=== PATIENT | male | born 1960 | race Hispanic/Latino ===

== ENCOUNTER → 2020-09-22 00:17 | Outpatient (CLI) | payer OTHER, SELFPAY ==
[2020-09-22 17:44] LABS: SARS-CoV-2 RNA PCR Negative
== END ==
PROVIDERS: PCP Internal Medicine; Visit Provider Internal Medicine Gastroenterology
DX: Z01.812 Encounter for preprocedural laboratory examination (principal); Z20.822 Contact with and (suspected) exposure to COVID-19
CPT/HCPCS: C9803; U0003; U0005

== ENCOUNTER 2020-09-25 00:43 | Day surgery (SDC) | payer OTHER, SELFPAY ==
[2020-09-14 09:27] VITALS: BMI 28.1
--- NOTE | 2020-09-25 12:20 | P.PNAN_ITS ---
Anes - Initial Pre Proc Eval Procedure: Operation Date: 09/25/20 13:15 Proposed Procedures p Screening Colonoscopy - Ajay Rios MD Date/Time: 09/25/20 12:20 Surgeon: Ajay Rios MD Pre Op Diagnosis: Neoplasm Screening, Hx of Colon Polyps Patient Data Age: 60 Gender: M Height: 5 ft 8 in Weight: 84 kg Allergies Allergy/AdvReac Type Severity Reaction Status Date / Time No Known Allergies Allergy Unknown Verified 12/05/06 22:28 Home Medications Medication Instructions Recorded Confirmed Type aspirin 81 mg tablet,delayed 81 mg PO DAILY 08/08/20 09/14/20 History release diltiazem HCl 300 mg 300 mg PO DAILY 08/08/20 09/14/20 History capsule,extended release 24 hr rosuvastatin 10 mg tablet 10 mg PO DAILY 08/08/20 09/14/20 History sodium,potassium,mag sulfates 17.5 See Rx Instructions PO .COMPLEX 08/31/20 Rx gram-3.13 gram-1.6 gram oral soln #354 ml Patient hx anesthesia problems: none Family hx anesthesia problems: none [facility] Past Medical History Medical History (Updated 08/08/20 @ 14:11 by Rogerio Wallace DO) H/O acute myocardial infarction Cardiac cath clear Social History Social History (Updated 08/08/20 @ 13:43 by Cherie Renteria [facility]) Years smoked: 25 Smoking status: Former smoker Tobacco type: cigarettes Additional smoking assessment comments: QUIT SMOKING 10 YEARS AGO. Alcohol intake: current Drinks per week: 14 Alcohol use details: DRINKS RUM Substance use: never Substance use type: does not use Living arrangements: with family Gender identity (if verbalized by the patient): Male Spiritual care concerns: No Anes - Eval Final PreProcedure Day of Procedure 09/25/20 12:20 Patient weight: overweight Heart: regular rate and rhythm Lungs: clear to auscultation Airway: Mallampati scale class II Neurological: alert and oriented Last oral intake: >/= 8 hours ASA classification: III Emergent: no Anesthetic plan: proceed Anesthesia type and monitoring: general GIVS and standard monitoring Informed Consent: The patient's anesthetic plan and its attendant risks and benefits were discussed with the patient/family/POA. Questions were solicited and answers provided to the satisfaction of the patient/family/POA.
[2020-09-25 12:37] VITALS: BP 145/94; PULSE 81; RESP 16; TEMP 36.8; O2SAT 97; BMI 28.8
[2020-09-25] MEDS: LACTATED RINGERS 1,000 ML 150 ML IV CONT (12:39)
--- NOTE | 2020-09-25 13:40 | PM.HPGS ---
History of Present Illness History of Present Illness Consent: Risks, benefits, and alternatives have been discussed and questions answered. Patient agrees to proceed with procedure. Chief complaint: Neoplasm Screening, Hx of Colon Polyps Narrative: Slava Spangler is a 60 year old male with history of colon polyps, due to have another colonoscopy Review of Systems Constitutional: Constitutional: Denies headache(s) and Denies weakness Eyes: Eyes: Denies blurry vision ENT: Reports Normal hearing present, Denies headache(s) and Denies neck pain Cardiovascular: Cardiovascular: Denies chest pain and Denies dyspnea Respiratory: Respiratory: Denies dyspnea Gastrointestinal: Gastrointestinal: Reports no additional gastrointestinal complaints Genitourinary: Genitourinary: Denies dysuria Musculoskeletal: Musculoskeletal: Denies neck pain Integumentary/Breasts: Skin/Breast: Denies dry skin Neurologic: Reports Normal hearing present, Denies headache(s) and Denies weakness Psychiatric: Psychiatric: Denies anxiety Endocrine: Endocrine: Denies change in body appearance Hematologic/Lymphatic: Hematologic/Lymphatic: Denies easy bleeding Allergic/Immunologic: Allergic/Immunologic: Denies urticaria PMF Past Medical History Medical History (Updated 08/08/20 @ 14:11 by Rogerio Wallace DO) H/O acute myocardial infarction Cardiac cath clear Social History Social History (Updated 08/08/20 @ 13:43 by Cherie Renteria [facility]) Years smoked: 25 Smoking status: Former smoker Tobacco type: cigarettes Additional smoking assessment comments: QUIT SMOKING 10 YEARS AGO. Alcohol intake: current Drinks per week: 14 Alcohol use details: DRINKS RUM Substance use: never Substance use type: does not use Living arrangements: with family Gender identity (if verbalized by the patient): Male Spiritual care concerns: No Meds Home Medications and Allergies Home Medications Medication Instructions Recorded Confirmed Type aspirin 81 mg tablet,delayed 81 mg PO DAILY 08/08/20 09/14/20 History release diltiazem HCl 300 mg 300 mg PO DAILY 08/08/20 09/14/20 History capsule,extended release 24 hr rosuvastatin 10 mg tablet 10 mg PO DAILY 08/08/20 09/14/20 History Allergies Allergy/AdvReac Type Severity Reaction Status Date / Time No Known Allergies Allergy Unknown Verified 09/25/20 12:35 Vital Signs Vital Signs - 24 hr 09/25/20 12:37 Temperature 98.3 F Pulse Rate 81 Respiratory Rate 16 Blood Pressure 145/94 H Pulse Oximetry 97 Exam Const: General: comfortable and no acute distress HENMT: General nose exam: Normal nares present Eyes: General: appearance normal, both eyes and all related structures Neck: Neck: no JVD Resp: Auscultation: clear to auscultation bilaterally Cardio: Rate: regular rate Rhythm: regular rhythm GI: Inspection: non-distended GI Palp: Yes Soft to palpation Skin: General skin exam: normal color Neuro: General: gait normal Speech: normal speech Extrem: General: normal to inspection Psych: Mental Status: mental status grossly normal Assessment and Plan Assessment and plan (1) Colon polyps: Code(s): K63.5 - Polyp of colon Status: Acute Assessment and Plan: proceed with colonoscopy
[2020-09-25 14:03] VITALS: BP 124/75; PULSE 80; RESP 16; O2SAT 96
[2020-09-25 14:13] VITALS: BP 138/81; PULSE 67; RESP 16; O2SAT 100
[2020-09-25 14:23] VITALS: BP 144/89; PULSE 70; RESP 16; O2SAT 97
== END 2020-09-25 14:40 | disposition home or self-care (01) ==
PROVIDERS: PCP Internal Medicine; Visit Provider Internal Medicine Gastroenterology
PROC: 0DJD8ZZ Inspection of Lower Intestinal Tract, Via Natural or Artificial Opening Endoscopic (ICD-10-PCS; CPT 45378; principal; 2020-09-25 13:15)
DX: Z12.11 Encounter for screening for malignant neoplasm of colon (principal); D12.3 Benign neoplasm of transverse colon; D12.5 Benign neoplasm of sigmoid colon; K64.8 Other hemorrhoids; Z86.010 Personal history of colon polyps; Z87.891 Personal history of nicotine dependence
CPT/HCPCS: 45385; 88305; J2704; J7120

== ENCOUNTER 2020-12-06 13:30 | Outpatient (CLI) | payer OTHER, SELFPAY ==
--- NOTE | ~2020-12-06 | XR_ITS ---
EXAMINATION: XR chest 2V DATE: 12/06/2020 13:44 INDICATION: Hemoptysis. Right chest pain. TECHNIQUE: Frontal and lateral views of the chest were obtained. COMPARISON: Chest 2 views 02/19/2017 FINDINGS: The chest demonstrates clear lungs without pneumonia, pleural effusion, or pneumothorax. Th e heart size is normal. IMPRESSION: 1. No acute cardiopulmonary disease. Reviewed, dictated and finalized at location A.
--- NOTE | ~2020-12-06 | CT_ITS ---
EXAMINATION: CT abdomen pelvis w con DATE: 12/06/2020 14:06 INDICATION: Abdominal pain intermittently on the right TECHNIQUE: Computed tomography (CT) of the abdomen and pelvis was performed without intravenous contr ast. The dose-length product was 648.04 mGy-cm. Automated exposure control and iterative reconstructi on technique were employed. COMPARISON: CT dated 12/07/2012 FINDINGS: Lung bases are unremarkable. Heart size is normal. No significant pleural or pericardial ef fusion. Moderate atherosclerosis. No evidence for aneurysm. There are nonenlarged retroperitoneal lym ph nodes, likely reactive. Mildly prominent obturator lymph nodes, largest measuring 1.9 cm, likely r eactive. Fatty infiltration of the liver. Multiple low density masses of the liver, the largest of which are c ompatible with cysts. The smaller lesions are too small to characterize, although likely benign. Smal l subcentimeter hypodensities of the spleen, also likely benign cysts or hemangiomas. There is an acc essory splenule. The pancreas, adrenal glands are unremarkable. There is punctate nonobstructing left renal stone. There is a subcentimeter hypodensity of the right kidney, most likely benign cysts. No hydronephrosis. Gallbladder is present. Nonobstructive bowel gas pattern. No abnormal pelvic masses o r fluid collections. No free air or free fluid. There is mild osteoarthritis of the hips. Mild lumbar spondylosis. No free air or free fluid. IMPRESSION: 1. No acute abdominal abnormality. 2: Hepatic steatosis with multiple liver cysts. 3: Borderline size abdominal and pelvic lymph nodes, likely reactive. 4: Punctate nonobstructing left renal stone. Reviewed, dictated and finalized at location B.
[2020-12-06 14:00] LABS: Estimated Glomerular Filt Rate > 60
== END 2020-12-06 13:31 | disposition home or self-care (01) ==
PROVIDERS: PCP Internal Medicine; Visit Provider Internal Medicine
DX: R04.2 Hemoptysis (principal); R10.9 Unspecified abdominal pain; K76.89 Other specified diseases of liver; K76.0 Fatty (change of) liver, not elsewhere classified; N20.0 Calculus of kidney
CPT/HCPCS: 71046; 74177; Q9967

== ENCOUNTER 2020-12-19 07:33 | Outpatient (CLI) | payer OTHER, SELFPAY ==
--- NOTE | ~2020-12-19 | CT_ITS ---
EXAMINATION: CT diagnostic chest w con DATE: 12/19/2020 08:02 INDICATION: Right-sided chest pain, hemoptysis TECHNIQUE: Transaxial computed tomographic images of the chest were obtained after the administration of 75 cc of Omnipaque 350 intravenous contrast. The dose-length product (DLP) was 303.88 mGy-cm. Ite rative reconstruction was used. COMPARISON: None FINDINGS: There is mild paraspinal atelectasis of the right lower lobe. No focal airspace opacities a re identified. There is no pleural effusion or pneumothorax. The heart size is normal. Calcified athe rosclerosis is noted. There are no pathologically enlarged thoracic lymph nodes. 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 Cysts of the liver measure up to 2.8 cm. There is mild thoracic spondylosis. IMPRESSION: 1. No CT correlate for the patient's symptoms. Reviewed, dictated and finalized at location A.
== END 2020-12-19 07:34 | disposition home or self-care (01) ==
LOC: ANHIMG 07:34
PROVIDERS: PCP Internal Medicine; Visit Provider Internal Medicine
DX: R07.89 Other chest pain (principal); R04.2 Hemoptysis
CPT/HCPCS: 71260; Q9967

== ENCOUNTER → 2021-01-16 02:21 | Outpatient (CLI) | payer OTHER, SELFPAY ==
[2021-01-16 17:52] LABS: SARS-CoV-2 RNA PCR Negative
== END ==
PROVIDERS: PCP Internal Medicine; Visit Provider Internal Medicine
DX: R68.89 Other general symptoms and signs (principal); Z20.822 Contact with and (suspected) exposure to COVID-19
CPT/HCPCS: C9803; U0003; U0005

== ENCOUNTER 2021-01-18 14:00 | Outpatient (CLI) | payer OTHER, SELFPAY ==
[2021-01-18 14:58] LABS: Influenza Control Positive
== END 2021-01-18 14:01 | disposition home or self-care (01) ==
LOC: ANHLAB 14:02
PROVIDERS: PCP Internal Medicine; Visit Provider Internal Medicine
DX: J02.9 Acute pharyngitis, unspecified (principal); R50.9 Fever, unspecified
CPT/HCPCS: 87804

== ENCOUNTER 2021-11-23 10:54 | Outpatient (CLI) | payer OTHER, SELFPAY ==
--- NOTE | 2021-11-23 11:45 | NEURO_ITS ---
Impression: # Complains of numbness of hands. # Bilateral Carpal Tunnel Syndrome of moderately severe degree. # Right ulnar neuropathy across the elbow. # Abnormal needle/EMG exam. # Patient does have left middle finger Dupuytren contracture. Nerve Conduction Studies Anti Sensory Summary Table Stim Site NR Peak (ms) P-T Amp (?V) Site1 Site2 Delta-P (ms) Dist (cm) Dereck (m/s) Left Median Anti Sensory (2-3nd Digit) Wrist 7.9 10.3 Wrist 2-3nd Digit 7.9 14.0 18 Wrist 7.7 19.3 Wrist 2-3nd Digit 7.9 14.0 18 Right Median Anti Sensory (2-3nd Digit) Wrist 7.0 21.2 Wrist 2-3nd Digit 7.0 14.0 20 Wrist 6.8 40.1 Wrist 2-3nd Digit 7.0 14.0 20 Left Radial Anti Sensory (Base 1st Digit) Wrist 2.3 10.9 Wrist Base 1st Digit 2.3 0.0 Right Radial Anti Sensory (Base 1st Digit) Wrist 3.1 9.4 Wrist Base 1st Digit 3.1 0.0 Left Ulnar Anti Sensory (5th Digit) Wrist 2.9 29.2 Wrist 5th Digit 2.9 14.0 48 Right Ulnar Anti Sensory (5th Digit) Wrist 3.6 32.9 Wrist 5th Digit 3.6 14.0 39 Motor Summary Table Stim Site NR Onset (ms) O-P Amp (mV) Site1 Site2 Delta-0 (ms) Dist (cm) Dereck (m/s) Left Median Motor (Abd Poll Brev) Wrist 6.0 2.9 Elbow Wrist 5.8 31.0 53 Elbow 11.8 2.9 Right Median Motor (Abd Poll Brev) Wrist 5.9 2.8 Elbow Wrist 5.2 26.0 50 Elbow 11.1 4.5 Left Ulnar Motor (Abd Dig Minimi) Wrist 2.8 4.7 A Elbow Wrist 5.4 29.0 54 A Elbow 8.2 3.5 Right Ulnar Motor (Abd Dig Minimi) Wrist 3.3 4.0 A Elbow Wrist 6.5 31.0 48 A Elbow 9.8 3.3 B Elbow Wrist 4.7 22.0 47 B Elbow 8.0 2.2 F Wave Studies NR F-Lat (ms) L-R F-Lat (ms) Left Median (Mrkrs) (Abd Poll Brev) 28.83 0.70 Right Median (Mrkrs) (Abd Poll Brev) 29.53 0.70 Left Ulnar (Mrkrs) (Abd Dig Min) 29.19 0.89 Right Ulnar (Mrkrs) (Abd Dig Min) 28.29 0.89 EMG Side Muscle Nerve Root Ins Act Fibs Amp Dur Recrt Comment Right 1stDorInt Ulnar C8-T1 Nml Nml Incr >12ms Reduced Right Ext Indicis Radial (Post Int) C7-8 Nml Nml Nml Nml Nml Right Ext Digitorum Radial (Post Int) C7-8 Nml Nml Nml Nml Nml Right BrachioRad Radial C5-6 Nml Nml Nml Nml Nml Right PronatorTeres Median C6-7 Nml Nml Nml Nml Nml Right Abd Poll Brev Median C8-T1 Nml Nml Incr >12ms Reduced Left 1stDorInt Ulnar C8-T1 Nml Nml Nml Nml Nml Left Ext Indicis Radial (Post Int) C7-8 Nml Nml Nml Nml Nml Left Ext Digitorum Radial (Post Int) C7-8 Nml Nml Nml Nml Nml Left BrachioRad Radial C5-6 Nml Nml Nml Nml Nml Left PronatorTeres Median C6-7 Nml Nml Nml Nml Nml Left Abd Poll Brev Median C8-T1 Nml Nml Incr >12ms Reduced Right ABD Dig Min Ulnar C8-T1 Nml Nml Incr >12ms Reduced Left ABD Dig Min Ulnar C8-T1 Nml Nml Nml Nml Nml MTDD
== END 2021-11-23 10:55 | disposition home or self-care (01) ==
PROVIDERS: PCP Internal Medicine; Visit Provider Nurse Practitioner
DX: R20.2 Paresthesia of skin (principal); G56.03 Carpal tunnel syndrome, bilateral upper limbs; G56.21 Lesion of ulnar nerve, right upper limb; R94.131 Abnormal electromyogram [EMG]
CPT/HCPCS: 95886; 95911

== ENCOUNTER 2021-12-20 01:12 | Day surgery (SDC) | payer OTHER, SELFPAY ==
[2021-12-13 10:06] VITALS: BMI 28.8
--- NOTE | 2021-12-13 10:19 | SUR.PREOP ---
Report to the Outpatient Waiting Room, entrance under the green pavilion located off [facility], at time __0600_ on date 12/20/21. OR Time: _0730__. - You and your visitor will be asked a series of questions to screen for COVID 19 for your protection. - Only one visitor is allowed at this time. - The patient visitor is requested to leave or wait in car when not with patient. - A mask is required within the hospital. Patients may have clear liquids (water, carbonated beverages, clear teas, apple juice) until 3 hours prior to surgery with a maximum of 20 ounces. - No food from midnight until time of surgery BEFORE 0430 AM - Infants may have breast milk until 4 hours before surgery, infant formula 6 hours prior to surgery. - Children will be allowed to drink immediately following surgery. If applicable, please bring a bottle or sippy cup to assist with drinking. Juice, water, soda, and popsicles are readily available. For infants on formula, please bring formula the day of surgery. Pacifiers are allowed. Take the following medications with a SIP of water the morning of surgery: CARDIZEM, ASPIRIN Medications to discontinue per physician ____N/A Date to take last dose Please no make-up, nail scottish, hairspray, perfume, deodorant, or body powder the day of surgery. No jewelry (including any body piercings) or valuables the day of surgery, leave them at home. Please take a shower or bath the night before, or the morning of, surgery with an antibacterial soap. Wear comfortable, loose fitting clothing. Children are encouraged to wear pajamas. - Jewelry must be removed prior to entering the operating room. Rings and piercings that are not removed may be cut off. - The hospital will not accept responsibility for valuables. - Please leave all valuables, including medications, at home the day of surgery. If you are going home after surgery, a licensed commercial trailer truck driver must drive you home. - NO public transportation without another adult. - We recommend that an adult stay with you for 24 hours following discharge. - We also recommend that you do not drive, make important decision, drink alcoholic beverages, or take any drugs that were not prescribed by your health care provider for at least 24 hours after your discharge time. For Pediatric surgeries, we recommend two adults accompany the child home (only one inside the building at this time). Follow any additional instructions given to you from your surgeon. If you or anyone in your household have experienced Covid symptoms in the past week, please notify your surgeon or the nurse liaison at the phone number below for possible testing. Telephone instructions given to __PATIENT__and asked if any additional questions and then verbalized understanding. Patient advised to call surgeon office or pre surgery nurse liaison [phone] if any additional questions.
[2021-12-20 06:20] VITALS: BP 150/82; PULSE 74; RESP 16; TEMP 37; O2SAT 96
[2021-12-20] MEDS: LACTATED RINGERS 1,000 ML 30 ML IV CONT (06:54)
--- NOTE | 2021-12-20 06:57 | P.PNAN_ITS ---
Anes - Initial Pre Proc Eval Procedure: Operation Date: 12/20/21 07:30 Proposed Procedures p Left Open Carpal Tunnel Release, Left Ulnar Neuroplasty at Elbow - Cheo Mays MD Date/Time: 12/20/21 06:57 Surgeon: Cheo Mays MD Pre Op Diagnosis: left carpal and cubital tunnel syndrome Patient Data Age: 61 Gender: M Height: 1.73 m Weight: 90.6 kg Last Vital Signs Temp 37.0 C 12/20/21 06:20 Pulse 74 12/20/21 06:20 Resp 16 12/20/21 06:20 BP 150/82 H 12/20/21 06:20 Pulse Ox 96 12/20/21 06:20 Allergies Allergy/AdvReac Type Severity Reaction Status Date / Time No Known Allergies Allergy Unknown Verified 12/20/21 06:10 Home Medications Medication Instructions Recorded Confirmed Type aspirin 81 mg tablet,delayed 81 mg PO DAILY 08/08/20 12/20/21 History release (Adult Aspirin Regimen) diltiazem HCl 300 mg 300 mg PO DAILY #30 caps 11/22/20 12/20/21 Rx capsule,extended release 24 hr Patient hx anesthesia problems: none Family hx anesthesia problems: none Results Review: All pre-operative results and documents have been reviewed as part of the pre- operative evaluation. [facility] Past Medical History Medical History H/O acute myocardial infarction Cardiac cath clear Family History Family History Father Cerebrovascular accident Other Diabetes mellitus Family history of allergic disorder Hypertension Social History Social History Smoking packs per day: 2 Smoking cigarettes per day: 40.0 Years smoked: 25 Smoking pack-years: 50.00 Smoking status: Former smoker Tobacco type: cigarettes Second hand tobacco smoke exposure: No Smoking end date: 06/30/10 Additional smoking assessment comments: QUIT SMOKING 10 YEARS AGO. Alcohol intake: current Drinks per week: 12 Alcohol use details: DRINKS RUM Substance use: never Substance use type: does not use Living arrangements: alone Gender identity (if verbalized by the patient): Male Spiritual care concerns: No Anes - Eval Final PreProcedure Day of Procedure 12/20/21 06:57 Patient weight: obese Heart: regular rate and rhythm Lungs: clear to auscultation Airway: Mallampati scale class II Neurological: alert and oriented Last oral intake: >/= 8 hours ASA classification: III Emergent: no Anesthetic plan: proceed Anesthesia type and monitoring: general GIVS and standard monitoring Results Review: All pre-operative results and documents have been reviewed as part of the pre- operative evaluation. Informed Consent: The patient's anesthetic plan and its attendant risks and benefits were di scussed with the patient/family/POA. Questions were solicited and answers provided to the satisfaction of the patient/family/POA.
--- NOTE | 2021-12-20 07:11 | WPDHPUPDATE1 ---
History and Physical Update Update Date/Time: 12/20/21 07:11 History and Physical has been reviewed, including an updated exam of the patient. There are NO changes in the patient's condition. Risks, benefits, and alternatives have been discussed and questions answered. Patient agrees to proceed with procedure.
[2021-12-20] MEDS: LIDO 1%/EPINEPHRINE/PF 1:200,000 30 ML VIAL XX (07:57)
[2021-12-20 08:37] VITALS: BP 120/105; PULSE 68; RESP 16; O2SAT 94
--- NOTE | 2021-12-20 08:42 | P.OP_ITS ---
Procedure Note - Detailed Date of Procedure 12/20/21 Pre-op Diagnosis left carpal and cubital tunnel syndrome Post-op Diagnosis Same Procedure Performed L OCTR and L ulnar neuroplasty at the elbow. Surgeon Cheo Mays MD [employer] S Anesthesia MAC Description of Procedure The 2 sites were marked on the patient's left upper extremity in the holding area.. He was taken to the operating room where was placed supine on the operating table. A time-out was held and confirmed. He was given IV sedation and the left upper extremity was prepped and draped in usual fashion. The 2 sites were marked for the incisions and locally infiltrated with 1% lidocaine with epinephrine. The extremity was exsanguinated and the tourniquet inflated to 250 mmHg. Surgery was started on the hand where the incision was made in the proximal palm as marked dissection was carried bluntly through the subcutaneous tissue. He 3 mm neurovascular structure was identified along the ulnar margin of this wound. This was carefully retracted ulnarly and the incision was made through the transverse retinaculum exposing the carpal canal. The retinaculum was divided distally and proximally for complete release. The skin was then closed with interrupted 4-0 nylon suture. Attention was turned to the elbow which was supported on folded towels and flexed. The incision was again made as marked. Once sharp dissection was carried out through the subcutaneous tissue to the interspace between the triceps muscle insertion and the medial epicondyle. The nerve was exposed was dissected free proximally where there appeared to be no areas of compression. It was then dissected distally where it passed under a dense thick Reyes ligament. The flexor muscle fascia also was opened and appeared to be also a possible source of compression on this nerve. The nerve did not sublux it was not transposed. Bleeding points were electrocoagulated. The tourniquet was released and the wound was closed with interrupted and running intradermal 3-0 Monocryl sutures. Glue was applied over the surface and a soft bandage is well. The usual bandage was applied at the wrist and the patient was discharged from the operating room stable condition. Has a prescription sent for hydrocodone 7. Estimated Blood Loss 2 Pathology None sent Condition Stable Disposition Same day
[2021-12-20 09:00] VITALS: BP 120/78; PULSE 67; RESP 16
[2021-12-20 09:20] VITALS: BP 130/82; PULSE 61; RESP 16
== END 2021-12-20 09:34 | disposition home or self-care (01) ==
PROVIDERS: PCP Internal Medicine; Visit Provider Plastic Surgery
PROC: (CPT 64721; principal; 2021-12-20 07:30)
DX: G56.02 Carpal tunnel syndrome, left upper limb (principal); G56.22 Lesion of ulnar nerve, left upper limb; R20.0 Anesthesia of skin; R20.2 Paresthesia of skin; I25.2 Old myocardial infarction; Z87.891 Personal history of nicotine dependence; Z79.82 Long term (current) use of aspirin; E66.9 Obesity, unspecified; Z68.30 Body mass index [BMI] 30.0-30.9, adult
CPT/HCPCS: 64721; 64718; A9270; J2250; J2704; J3010; J7120

== ENCOUNTER 2022-01-17 02:19 | Day surgery (SDC) | payer OTHER, SELFPAY ==
[2022-01-14 14:19] VITALS: BMI 28.5
--- NOTE | 2022-01-14 14:23 | PC.NURSE ---
Report to the Outpatient Waiting Room, entrance under the green pavilion located off [facility], at time 0600 on date 01/17/21. OR Time: 0730. - You and your visitor will be asked a series of questions to screen for COVID 19 for your protection. - Only one visitor is allowed at this time. - The patient visitor is requested to leave or wait in car when not with patient. - A mask is required within the hospital. Patients may have clear liquids (water, carbonated beverages, clear teas, apple juice) until 3 hours prior to surgery with a maximum of 20 ounces. - No food from midnight until time of surgery Take the following medications with a SIP of water the morning of surgery: DILTIAZEM Medications to discontinue per physician: N/A Date to take last dose: N/A Please no make-up, nail icelandic, hairspray, perfume, deodorant, or body powder the day of surgery. No jewelry (including any body piercings) or valuables the day of surgery, leave them at home. Please take a shower or bath the night before, or the morning of, surgery with an antibacterial soap. Wear comfortable, loose fitting clothing. - Jewelry must be removed prior to entering the operating room. Rings and piercings that are not removed may be cut off. - The hospital will not accept responsibility for valuables. - Please leave all valuables, including medications, at home the day of surgery. If you are going home after surgery, a licensed diesel truck driver must drive you home. - NO public transportation without another adult. - We recommend that an adult stay with you for 24 hours following discharge. - We also recommend that you do not drive, make important decision, drink alcoholic beverages, or take any drugs that were not prescribed by your health care provider for at least 24 hours after your discharge time. Follow any additional instructions given to you from your surgeon. If you or anyone in your household have experienced Covid symptoms in the past week, please notify your surgeon or the nurse liaison at the phone number below for possible testing. Telephone instructions given to PT - EDIS GARCIA and asked if any additional questions and then verbalized understanding. Patient advised to call surgeon office or pre surgery nurse liaison [phone] if any additional questions.
[2022-01-17 08:00] VITALS: BP 153/88; PULSE 80; RESP 18; TEMP 36.6; O2SAT 94
[2022-01-17] MEDS: LACTATED RINGERS 1,000 ML 30 ML IV CONT (08:00)
--- NOTE | 2022-01-17 08:17 | WPDHPUPDATE1 ---
History and Physical Update Update Date/Time: 01/17/22 08:17 History and Physical has been reviewed, including an updated exam of the patient. There are NO changes in the patient's condition. Risks, benefits, and alternatives have been discussed and questions answered. Patient agrees to proceed with procedure.
--- NOTE | 2022-01-17 08:26 | WPDANESEPPF ---
Anes - Initial Pre Proc Eval Procedure: Operation Date: 01/17/22 09:30 Proposed Procedures p Right Open Carpal Tunnel Release, Right Ulnar Neuroplasty at Elbow - Cheo Mays MD Date/Time: 01/17/22 08:26 Surgeon: Cheo Mays MD Pre Op Diagnosis: rt carpal tunnel syndrome, rt ulnar neuropathy elb Patient Data Age: 61 Gender: M Height: 1.73 m Weight: 85.3 kg Allergies Allergy/AdvReac Type Severity Reaction Status Date / Time No Known Allergies Allergy Unknown Verified 01/14/22 14:19 Home Medications Medication Instructions Recorded Confirmed Type aspirin 81 mg tablet,delayed 81 mg PO DAILY 08/08/20 01/14/22 History release (Adult Aspirin Regimen) diltiazem HCl 300 mg 300 mg PO DAILY #30 caps 11/22/20 01/14/22 Rx capsule,extended release 24 hr Patient hx anesthesia problems: none Family hx anesthesia problems: none Results Review: All pre-operative results and documents have been reviewed as part of the pre-operative evaluation. [facility] Past Medical History Medical History Essential hypertension H/O acute myocardial infarction Cardiac cath clear Hyperlipidemia Family History Family History Father Cerebrovascular accident Other Diabetes mellitus Family history of allergic disorder Hypertension Social History Social History Smoking packs per day: 1 Smoking cigarettes per day: 20.0 Years smoked: 30 Smoking pack-years: 30.00 Smoking status: Former smoker Tobacco type: cigarettes Second hand tobacco smoke exposure: No Smoking end date: 06/30/06 Additional smoking assessment comments: QUIT SMOKING 10 YEARS AGO. Alcohol intake: current Drinks per week: 14 Alcohol use details: 2-5 DRINKS/DAY Substance use: never Substance use type: does not use Living arrangements: alone Gender identity (if verbalized by the patient): Male Spiritual care concerns: No Anes - Eval Final PreProcedure Day of Procedure 01/17/22 08:26 Patient weight: overweight Heart: regular rate and rhythm Lungs: decreased breath sounds Neurological: alert and oriented Last oral intake: >/= 8 hours ASA classification: III Emergent: no Anesthetic plan: proceed Anesthesia type and monitoring: general GIVS and standard monitoring Results Review: All pre-operative results and documents have been reviewed as part of the pre-operative evaluation. Informed Consent: The patient's anesthetic plan and its attendant risks and benefits were discussed with the patient/family/POA. Questions were solicited and answers provided to the satisfaction of the patient/family/POA.
[2022-01-17] MEDS: LIDO 1%/EPINEPHRINE 1:100,000 10 ML VIAL INFILTRATE (09:44)
[2022-01-17 09:48] VITALS: BP 143/81; PULSE 74; RESP 18; O2SAT 93
--- NOTE | 2022-01-17 10:02 | P.OP_ITS ---
Procedure Note - Detailed Date of Procedure 01/17/22 Pre-op Diagnosis rt carpal tunnel syndrome, rt ulnar neuropathy elb Post-op Diagnosis Same Procedure Performed Right open carpal tunnel release the and right ulnar neuroplasty at the elbow Surgeon Cheo Mays MD Banquet Coordinator Suellen pearce Anesthesia MAC Description of Procedure The carpal tunnel and cubital tunnel were marked on the patient with his consent in the holding area. He was then taken to the operating room where he was placed supine on the operating table. He was given IV sedation as the extremity was prepped and draped in usual fashion. A time-out was held and confirmed. The 2 sites on the right upper extremity were again marked for the actual incision. The sites were infiltrated with 1% lidocaine with epinephrine. The tourniquet was inflated to 250 mmHg. Surgery was begun in the palm with release of the carpal ligament. The incision was made as marked and dissection was carried bluntly through the subcutaneous tissue to the palmar aponeurosis. This and the carpal retinaculum were incised with a 15. Blade. Under 3 point retraction the ligament divided distally and proximally to completely release it. No unusual anatomy was noted. The skin wound was closed with interrupted 4-0 nylon suture. The elbow was supported on folded towels the elbow flexed and the incision was made as marked over the cubital tunnel. Dissection was carried through the subcutaneous tissue to the interspace between the triceps and the medial epicondyle. Several bridging neurovascular structures were preserved. The fascia overlying the ulnar nerve was opened and the nerve was released several cm proximally. The proximal dissection released Reyes's ligament. Very little release was necessary under the flexor muscle fascia. Several bleeding points were electrocoagulated. The nerve did not sublux and was not transposed. The skin was closed with intradermal 3-0 Monocryl sutures in a cross mercer peters and a running intradermal 3-0 Monocryl to close the skin. Glue was applied to that wound Both sites were dressed in usual fashion with gauze and Jayden wrap. The tourniquet was released the patient was discharged from the operating room stable condition. He requests no prescription pain medication. Estimated Blood Loss 0 Tourniquet Time 33 Drains No Packing No Pathology None sent Complications No immediate complications Condition Stable Disposition Same day
--- NOTE | 2022-01-17 10:14 | SUR.PHASEII ---
per dr steen pt refused post op pain med prescription and he can do what ever he did past time for pain control.
[2022-01-17 10:18] VITALS: BP 157/80; PULSE 68; RESP 18; O2SAT 94
== END 2022-01-17 10:41 | disposition home or self-care (01) ==
PROVIDERS: PCP Internal Medicine; Visit Provider Plastic Surgery
PROC: (CPT 64721; principal; 2022-01-17 09:30)
DX: G56.01 Carpal tunnel syndrome, right upper limb (principal); G56.21 Lesion of ulnar nerve, right upper limb; I10 Essential (primary) hypertension; I25.2 Old myocardial infarction; E78.5 Hyperlipidemia, unspecified; Z79.82 Long term (current) use of aspirin; Z87.891 Personal history of nicotine dependence
CPT/HCPCS: 64718; 64721; A9270; J2250; J2704; J3010; J7120

== ENCOUNTER 2023-03-07 04:33 | Day surgery (SDC) | payer OTHER, SELFPAY ==
[2023-03-06 18:39] VITALS: BMI 28.9
[2023-03-07 11:52] VITALS: BP 148/84; PULSE 79; RESP 13; TEMP 36.4; O2SAT 13; BMI 29.4
--- NOTE | 2023-03-07 12:56 | WPDHPUPDATE1 ---
History and Physical Update Update Date/Time: 03/07/23 12:56 History and Physical has been reviewed, including an updated exam of the patient. There are NO changes in the patient's condition. Risks, benefits, and alternatives have been discussed and questions answered. Patient agrees to proceed with procedure.
--- NOTE | 2023-03-07 12:56 | W.PM.PROC2 ---
Procedure Note - Detailed Date of Procedure 03/07/23 Pre-op Diagnosis CVA Post-op Diagnosis Same Procedure Performed Loop recorder implantation Surgeon Robert Snider MD Anesthesia Local Indications Cerebrovascular accident Findings Loop recorder implantation successful Description of Procedure Brief History of Present Illness: Patient is a very pleasant 62-year-old male with a past medical history seen for hypertension, Prinzmetal angina, hyperlipidemia, recent unexplained stroke referred for loop recorder implantation for further delineation of etiology to exclude atrial fibrillation and/or atrial flutter. Thirty day electronic device monitor was unrevealing as explanation prior to loop recorder implantation. After verbal and written informed consent was obtained from the patient risks, benefits, and alternatives explained in detail the patient agreed to proceed with the plan of care as outlined above. Patient was evaluated at bedside in the [facility] procedure room. Patient was placed the appropriate supine position. Left anterior chest wall was prepped and draped in the usual sterile fashion. Operators in appropriate sterile garb. The left 4th intercostal space was identified and marked. Utilizing approximately 36 cc of 1% subcutaneous lidocaine the left anterior chest wall was then locally anesthetized. After local anesthesia was achieved, 2 fingerbreadths left of the sternum at the 4th intercostal space was again identified and a 1 cm incision was made with the included skin punch tool. Following this with the included introducer, a tract was made subcutaneously at a 45 degree angle from the sternum. The introducer was then inverted 180 degrees and with the included plunger the Medtronic REVEAL LINQ II loop recorder was advanced subcutaneously into position easily and without complication. The plunger was then removed followed by the introducer. Manual pressure was held for least 5-10 min with excellent hemostasis. The device was then interrogated and revealed excellent fidelity and measured at 0.5mV. The Medtronic REVEAL LINQ II SN [id number] was implanted without complication. The incision was then approximated and closed using Exofin skin adhesive. The incision was then covered with a sterile dressing. Complications: None Implants MEDTRONIC LINQ II [id number]
[2023-03-07 13:10] VITALS: BP 169/80; PULSE 61; RESP 13; O2SAT 97
--- NOTE | 2023-03-07 13:39 | WPDMODSED ---
Moderate Sedation Note-Pt Data Patient Data Diagnosis: CEREBROVASCULAR ACCIDENT Present Complaint: NONE Procedure to be performed/Plan: Loop recorder implantation Brief history and physical update: Brief History of Present Illness: Patient is a very pleasant 62-year-old male with a past medical history seen for hypertension, Prinzmetal angina, hyperlipidemia, recent unexplained stroke referred for loop recorder implantation for further delineation of etiology to exclude atrial fibrillation and/or atrial flutter.? Thirty day equipment monitor phototypesetting was unrevealing as explanation prior to loop recorder implantation. Impression: Cryptogenic stroke Hypertension Prinzmetal angina Hyperlipidemia Plan of care: Loop recorder implantation Allergies Allergy/AdvReac Type Severity Reaction Status Date / Time rosuvastatin AdvReac Nightmare Verified 03/07/23 11:48 Home Medications Medication Instructions Recorded Confirmed Type aspirin 81 mg tablet,delayed 81 mg PO DAILY 08/08/20 03/07/23 History release (Adult Aspirin Regimen) diltiazem HCl 300 mg 300 mg PO DAILY #30 caps 11/22/20 03/07/23 Rx capsule,extended release 24 hr atorvastatin 80 mg tablet 80 mg PO DAILY 03/06/23 03/06/23 History losartan 25 mg tablet 25 mg PO DAILY 03/06/23 03/07/23 History nitroglycerin 0.4 mg sublingual 0.4 mg sublingual Q5M PRN Chest 03/06/23 03/06/23 History tablet Pain Sedation/Anesthesia: No previous sedation/anesthesia problems (including family history). [facility] Past Medical History Medical History Essential hypertension H/O acute myocardial infarction Cardiac cath clear Hyperlipidemia Family History Family History Father Cerebrovascular accident Other Diabetes mellitus Family history of allergic disorder Hypertension Social History Social History Smoking packs per day: 1 Smoking cigarettes per day: 20.0 Years smoked: 40 Smoking pack-years: 40.00 Smoking status: Former smoker Tobacco type: cigarettes Second hand tobacco smoke exposure: Yes Smoking end date: 06/30/06 Additional smoking assessment comments: QUIT SMOKING 10 YEARS AGO. Alcohol intake: current Drinks per week: 30 Alcohol use details: 6 DOUBLE SHOT RUM DRINKS DAILY LIQUOR OF CHOICE IS RUM. NO BEER. Substance use: never Substance use type: does not use Living arrangements: alone Gender identity (if verbalized by the patient): Male Spiritual care concerns: No Mod Sed Physical Exam Physical Exam Pre Procedural Exam: Normal: Appearance, Eyes, Ears, Nose, Neck, Throat, Airway, Lungs, Heart Size, Heart Rate, Heart Rhythm, Neuro Exam, Abdomen, Extremities and Skin Hours since solid foods: 12 Hours since liquid intake: 12 Mallampati Classification: class III Internal Medicine - PN: Obj Da Vital Signs Vital Signs: Vital Signs - 24 hr 03/07/23 11:52 03/07/23 13:10 Temperature 36.4 C Pulse Rate 79 61 Respiratory Rate 13 13 Blood Pressure 148/84 H 169/80 H Pulse Oximetry 13 L 97 Oxygen Delivery Room Air Room Air ASA Classification/Sedation ASA Classification/Sedation ASA Class: III Emergent: No Risks: Sedation was not administered during this procedure. Only local anesthetic lidocaine was utilized.
[2023-03-07 13:49] VITALS: BP 175/82; PULSE 66; RESP 14; O2SAT 97
== END 2023-03-07 13:59 | disposition home or self-care (01) ==
PROVIDERS: Visit Provider Internal Medicine Cardiovascular Disease
PROC: (CPT 33285; principal; 2023-03-07 13:00)
DX: I63.9 Cerebral infarction, unspecified (principal); I10 Essential (primary) hypertension; I25.2 Old myocardial infarction; E78.5 Hyperlipidemia, unspecified; Z87.891 Personal history of nicotine dependence
CPT/HCPCS: 33285; C1764